=== PATIENT | male | born 1985 | race Caucasian/White ===

== ENCOUNTER 2023-04-04 12:12 | Emergency (ER) | payer OTHER ==
[2023-04-04 12:24] VITALS: BP 134/90; PULSE 59; RESP 15; TEMP 98.2; BMI 31.0
== END 2023-04-04 13:28 | disposition home or self-care (01) ==
LOC: FER 12:12
DX: S63.502A Unspecified sprain of left wrist, initial encounter (principal); X50.1XXA Overexertion from prolonged static or awkward postures, initial encounter; Y93.89 Activity, other specified; Y99.0 Civilian activity done for income or pay
CPT/HCPCS: 73110-TC-LT-FY; 99283-25